=== PATIENT | female | born 1945 | race Native Hawaiian/Other Pacific Islander ===

== ENCOUNTER 2017-02-08 08:00 | Outpatient (CLI) | payer OTHER, BC | END 2017-02-08 09:30 | disposition home or self-care (01) | LOC: MAMMO 08:00 | DX: Z12.31 Encounter for screening mammogram for malignant neoplasm of breast (principal) ==

== ENCOUNTER 2018-02-21 08:16 | Outpatient (CLI) | payer OTHER, BC | END 2018-02-21 21:18 | disposition home or self-care (01) | LOC: MAMMO 08:16 | DX: Z12.31 Encounter for screening mammogram for malignant neoplasm of breast (principal) ==

== ENCOUNTER 2021-07-22 08:58 | Outpatient (CLI) | payer OTHER | END 2021-07-22 18:57 | disposition home or self-care (01) | LOC: MAMMO 08:58 | PROVIDERS: ATTEND Internal Medicine | DX: Z12.31 Encounter for screening mammogram for malignant neoplasm of breast (principal) ==

== ENCOUNTER 2022-10-20 10:42 | Outpatient (CLI) | payer OTHER ==
[2022-10-20 11:04] LABS: POTASSIUM 4.1 mmol/L (3.6-5.2)
== END 2022-10-20 20:08 | disposition home or self-care (01) ==
LOC: LABW 10:42
PROVIDERS: ATTEND Internal Medicine Cardiovascular Disease
DX: Z79.899 Other long term (current) drug therapy (principal)
CPT/HCPCS: 36415; 80048